=== PATIENT | male | born 1970 | race Asian ===

== ENCOUNTER 2018-07-19 08:46 | Day surgery (SDC) | payer OTHER, SELFPAY ==
[2018-07-19] VITALS (11 sets, daily range): BP systolic 102–120; BP diastolic 69–83; PULSE 61–77; RESP 9–72; TEMP 36.1–36.6; O2SAT 9–99; BMI 25.1
--- NOTE | 2018-07-19 | PATH_ITS ---
[facility] Accession Number: [id number] . 01 Material submitted: . GASTRIC BIOPSY, ANTRUM . 01 Clinical history: . A: GASTRIC BIOPSY, R/O H. PYLORI . 02 Diagnosis: Stomach, Antrum, Biopsy: Helicobacter pylori gastritis. Negative for intestinal metaplasia. Negative for dysplasia and malignancy. [facility]/07/20/2018 . 02 Electronically signed: . Salma Avery MD, Pathologist NPI- [id number] . 01 Gross description: . Received in one formalin-filled container labeled with the patient's name and labeled gastric, are two 0.1-0.2 cm portions of tissue, entirely submitted in one cassette. ([id number]) /FRR . 02 Pathologist provided ICD-10: R10.9, B96.81 . 02 CPT . 870710 Performed at: 01 [facility] [address] [place] [address], [place], [place] [id number] MD Wyatt Kemp MD Phone: [phone] Performed at: 02 [facility] [address] [place], [place] [id number] MD Salma Avery MD Phone: [phone]
[2018-07-19] MEDS: FLEETS ENEMA 1 EACH PR (09:46)
[2018-07-19] MEDS: SODIUM CHLORIDE 0.9% 1,000 ML 100 ML IV (09:46)
--- NOTE | 2018-07-19 10:24 | PM.HP.1 ---
History of Present Illness Date Patient Seen: 07/19/18 Time Patient Seen: 10:12 Chief complaint: colonoscopy egd [phone] [id number] Narrative: reflux and rectal bleeding Patient History Family & Social History Social History: household members none Meds Home Medications Medication Instructions Recorded Confirmed Type Cymbalta 30 mg PO BID 07/19/18 07/19/18 History Imitrex 100 mg PO DAILY PRN 07/19/18 07/19/18 History Viagra 50 mg PO DAILY PRN 07/19/18 07/19/18 History aspirin 325 mg PO DAILY 07/19/18 07/19/18 History atorvastatin 20 mg PO DAILY 07/19/18 07/19/18 History ranitidine HCl 150 mg PO BID 07/19/18 07/19/18 History Allergies Allergy/AdvReac Type Severity Reaction Status Date / Time No Known Drug Allergies Allergy Verified 07/18/18 14:43 Review of Systems Review of Systems All systems reviewed & are unremarkable except as noted in HPI and below Exam Vital Signs (past 8 hours): - 07/19/18 09:47 Temperature 97.9 F Pulse Rate 68 Respiratory Rate 15 Blood Pressure 120/83 Pulse Oximetry 98 Oxygen Delivery Method Room Air Narrative Exam Narrative: gen aa0x3 heent aniceteric cv no murmur, rrr pulm ctab ext 2+ pules no edema Assessment & Plan Plan: Assessment/Plan Narrative: reflux rectal bleeding EGD and colonoscopy
--- NOTE | 2018-07-19 10:27 | P.HP_ITS ---
History of Present Illness Date Patient Seen: 07/19/18 Time Patient Seen: 10:12 Chief complaint: colonoscopy egd [phone] [id number] Narrative: reflux and rectal bleeding Patient History Family & Social History Social History: household members none Meds Home Medications Medication Instructions Recorded Confirmed Type Cymbalta 30 mg PO BID 07/19/18 07/19/18 History Imitrex 100 mg PO DAILY PRN 07/19/18 07/19/18 History Viagra 50 mg PO DAILY PRN 07/19/18 07/19/18 History aspirin 325 mg PO DAILY 07/19/18 07/19/18 History atorvastatin 20 mg PO DAILY 07/19/18 07/19/18 History ranitidine HCl 150 mg PO BID 07/19/18 07/19/18 History Allergies Allergy/AdvReac Type Severity Reaction Status Date / Time No Known Drug Allergies Allergy Verified 07/18/18 14:43 Review of Systems Review of Systems All systems reviewed & are unremarkable except as noted in HPI and below Exam Vital Signs (past 8 hours): - 07/19/18 09:47 Temperature 97.9 F Pulse Rate 68 Respiratory Rate 15 Blood Pressure 120/83 Pulse Oximetry 98 Oxygen Delivery Method Room Air Narrative Exam Narrative: gen aa0x3 heent aniceteric cv no murmur, rrr pulm ctab ext 2+ pules no edema Assessment & Plan Plan: Assessment/Plan Narrative: reflux rectal bleeding EGD and colonoscopy
[2018-07-19] MEDS: fentaNYL 250 MCG/5 ML INJ 150 MCG IV (10:50)
[2018-07-19] MEDS: MIDAZOLAM 5 MG/5 ML VIAL IV (10:51)
--- NOTE | 2018-07-19 10:54 | PM.OP.ENDO ---
Operative Date/Time/Diagnoses Date of procedure: 07/19/18 Time of procedure: 10:27 Procedure & Clinicians Study performed: EGD Same procedure as scheduled: Yes Indications: GERD Surgeon: Mike Felix Procedure Notes Procedure in detail: Sedation: 4 mg Versed, 100 mcg fentanyl Prior to the procedure, a history and physical was performed and patient medications and allergies were reviewed. Preprocedure nursing history and assessment was reviewed. Patient identification and proposed procedure were verified by the physician and nurse in the procedure room. The physical status of the patient was reassessed after the procedure. After informed consent was obtained including risks, benefits, and alternatives, the scope was passed under direct vision. Throughout the procedure the patient's blood pressure, pulse, and oxygen saturations were monitored continuously. The upper endoscope was introduced through the mouth and advanced to the 2nd portion of the duodenum. Retroflexion was performed in the stomach. The patient tolerated the procedure well. Esophagus: - LA grade B esophagitis noted. The Z-line was regular and located at 35 cm from the incisors. Stomach: - Small erosions, erythema, and mild nodularity noted in the gastric antrum and pre-pyloric stomach. This was biopsied with a cold forceps for histology and to rule out H pylori Duodenum: - Mild erosions noted in the duodenal bulb - A prominent but otherwise normal-appearing ampulla was seen. Specimen(s): none sent Complications: other (No complications. Estimated blood loss minimal) Plan for aftercare: Continue present medications. Take a PPI such as omeprazole 20 mg twice a day Follow anti-reflux diet and lifestyle Repeat EGD in 8-12 weeks to confirm healing of esophagitis Follow-up in GI clinic as previously scheduled
--- NOTE | 2018-07-19 11:02 | PM.OP.ENDO ---
Operative Date/Time/Diagnoses Date of procedure: 07/19/18 Time of procedure: 10:27 Procedure & Clinicians Study performed: Colonoscopy Same procedure as scheduled: Yes Indications: Rectal bleeding. No previous colonoscopy Surgeon: Mike Felix Procedure Notes Procedure in detail: Sedation: 2 mg of Versed, 50 mcg of fentanyl, plus meds used for EGD. Prior to the procedure, a history and physical was performed, and patient medications and allergies were reviewed. Preprocedure nursing history and assessment was reviewed. Patient identification and proposed procedure were verified by the physician and nurse in the procedure room. The physical status of the patient was reassessed after the procedure. After informed consent was obtained including risks, benefits, and alternatives, the scope was passed under direct vision. Throughout the procedure, the patient's blood pressure, pulse, and oxygen saturations were monitored continuously. The adult colonoscope was introduced through the anus and advanced to the cecum as identified by the appendiceal orifice and IC valve. The patient tolerated the procedure well. Bowel prep was deemed a poor. Digital rectal and perianal examination were unremarkable aside from prolapsed internal hemorrhoids. Retroflexion in the rectum revealed grade 2 medium-sized internal hemorrhoids There was solid stool present throughout the entire colon which precluded good visualization. Sedation minutes: 22 Specimen(s): none sent Complications: other (No complications. Estimated blood loss none) Plan for aftercare: Reschedule colonoscopy with an extra dose of bowel prep Continue present medications Resume previous diet Follow-up in GI clinic as previously scheduled Discharged home with escort
== END 2018-07-19 13:38 | disposition home or self-care (01) ==
PROVIDERS: PCP Family Medicine; Visit Provider Internal Medicine
PROC: 0DJ08ZZ Inspection of Upper Intestinal Tract, Via Natural or Artificial Opening Endoscopic (ICD-10-PCS; CPT 43235; principal; 2018-07-19 10:00)
PROC: 0DJD8ZZ Inspection of Lower Intestinal Tract, Via Natural or Artificial Opening Endoscopic (ICD-10-PCS; CPT 45378; 2018-07-19 10:00)
DX: K62.5 Hemorrhage of anus and rectum (principal); K64.1 Second degree hemorrhoids; K21.0 Gastro-esophageal reflux disease with esophagitis; K31.9 Disease of stomach and duodenum, unspecified
CPT/HCPCS: 43239; 45378; 88305; J2250; J3010

== ENCOUNTER → 2018-09-11 09:24 | Outpatient (CLI) | payer OTHER, SELFPAY | PROVIDERS: Family Provider Family Medicine; PCP Family Medicine; Visit Provider Physician Assistant | DX: B96.81 Helicobacter pylori [H. pylori] as the cause of diseases classified elsewhere (principal) | CPT/HCPCS: 83013 ==